=== PATIENT | male | born 1965 | race Caucasian/White ===

== ENCOUNTER → 2016-12-27 | Outpatient (CLI) | payer OTHER ==
[2016-12-27 15:36] LABS: CH 33.9; CHCM 34.5; HDW 2.32; MCH 34.2 pg (25.0-35.0); MCHC 34.7 g/dL (31.0-37.0); MCV 98.7 fL (80.0-100.0); RBC 4.67 m/uL (4.30-5.90); RDW 13.4 % (11.5-15.5); WBC 6.4 k/uL (3.8-10.6)
[2016-12-27 15:37] LABS: Appearance,Urine Clear (Clear); Bilirubin,Urine Negative (Negative); Glucose,Urine (UA) Negative (Negative); Ketones,Urine Negative (Negative); Leukocyte Esterase,Urine Negative (Negative); Nitrite,Urine Negative (Negative); PH, Urine 6.5 (5.0-8.0); Protein,Urine Negative (Negative); Specific Gravity,Urine 1.007 (1.001-1.035); UA Billing (MACRO vs. MICRO) CHEM; Urobilinogen,Urine <2.0 mg/dL (<2.0)
[2016-12-27 15:42] LABS: INR 1.1 (<1.2); Partial Thromboplastin Time 27.2 sec (22.0-30.0); Prothrombin Time 10.9 sec (9.0-12.0)
[2016-12-27 15:50] LABS: ALT 52 U/L (21-72); AST 37 U/L (17-59); Alkaline Phosphatase 95 U/L (38-126); Anion Gap 11 mmol/L; Blood Urea Nitrogen 13 mg/dL (9-20); Calcium 9.5 mg/dL (8.4-10.2); Carbon Dioxide 28 mmol/L (22-30); Chloride 102 mmol/L (98-107); Glucose 93 mg/dL (74-99); Non-African American GFR(MDRD) >60 (>60 ml/min/1.73 sqM); Potassium 4.4 mmol/L (3.5-5.1); Sodium 141 mmol/L (137-145); Total Bilirubin 1.2 mg/dL (0.2-1.3); Total Protein 7.3 g/dL (6.3-8.2)
== END | disposition home or self-care (01) ==
LOC: LABPAT 15:09
PROVIDERS: ATTEND Orthopaedic Surgery
DX: Z01.810 Encounter for preprocedural cardiovascular examination (principal)
CPT/HCPCS: 80053; 81003; 85027; 85610; 85730; 87070

== ENCOUNTER 2017-01-04 09:58 | Inpatient (IN) | payer OTHER ==
[~2017-01-04 09:58] MED LIST: ACETAMINOPHEN TAB 500 MG TAB PO ONE; DEXAMETHASONE SOD PHOSPHATE 10 MG/ML 1 ML VIAL IV ONE; HYDROmorphone 1 MG/ML 1 ML SYRINGE IVP PRN; MELOXICAM 7.5 MG TAB PO ONE; MIDAZOLAM 2 MG/2 ML VIAL IV PRN; ONDANSETRON 4 MG/2 ML VIAL IVP ONE; SCOPOLAMINE 1.5MG/72HR PATCH TRANSDERM ONE; TRANEXAMIC ACID 1,000 MG in SODIUM CHLORIDE 0.9% 100 ML IVPB ONE; ceFAZolin 2 GM in SODIUM CHLORIDE 0.9% 100 ML IVPB ONE
[2017-01-04] MEDS: LACTATED RINGERS 1,000 ML IV SCH (10:35)
[2017-01-04] MEDS ORDERED: LIDOCAINE 1% 20 ML VIAL (10MG/ML) FOR IV START INTRADERMA ONE (10:41)
[2017-01-04] MEDS ORDERED: NALOXONE 0.4 MG/ML 1 ML VIAL IV PRN (12:09)
[2017-01-04] MEDS ORDERED: HYDROmorphone 1 MG/ML 1 ML SYRINGE IVP PRN ×3 (12:09)
[2017-01-04] MEDS ORDERED: traMADol 50 MG TAB PO PRN ×2 (12:09→12:13)
[2017-01-04] MEDS ORDERED: ONDANSETRON 4 MG/2 ML VIAL IVP PRN (12:09)
[2017-01-04] MEDS ORDERED: hydrOXYzine PAMOATE 25 MG CAP PO PRN (12:09)
[2017-01-04] MEDS ORDERED: DIAZEPAM 5 MG TAB PO PRN ×2 (12:09)
[2017-01-04] MEDS ORDERED: MIDAZOLAM 2 MG/2 ML VIAL ONE (12:25)
[2017-01-04] MEDS ORDERED: SODIUM CHLORIDE 0.9% 1,000 ML BAG ONE (12:25)
[2017-01-04] MEDS ORDERED: fentaNYL (PF) 50 MCG/ML 2 ML AMP ONE (12:25)
[2017-01-04] MEDS ORDERED: PROPOFOL 10 MG/ML 20 ML VIAL IV ONE (12:25)
[2017-01-04] MEDS ORDERED: HEPARIN SODIUM,PORCINE 10,000 UNIT/ML 1 ML VIAL ONE (12:25)
[2017-01-04] MEDS ORDERED: TRANEXAMIC ACID 1,000 MG/10 ML VIAL ONE (12:25)
[2017-01-04] MEDS ORDERED: SODIUM CHLORIDE 0.9% 100 ML BAG ONE (12:25)
[2017-01-04] MEDS: ROPIVACAINE 246.25 MG, EPINEPHrine 0.5 MG, KETOROLAC 30 MG, cloNIDine HCL/PF 80 MCG, WA... MISCELLANE ONE ×10 (12:53→13:31)
[2017-01-04] MEDS ORDERED: ceFAZolin 3,000 MG in SODIUM CHLORIDE 0.9% IRRIGATIO 3,000 ML IRRIGATION ONE (12:54)
[2017-01-04] MEDS ORDERED: LACTATED RINGERS 1,000 ML IV ONE (13:13)
--- NOTE | 2017-01-04 14:13 | FL ---
EXAMINATION TYPE: FL guidance operating room, XR Hip Limited RT DATE OF EXAM: 01/04/2017 CLINICAL HISTORY: Right hip replacement surgery. TECHNIQUE: Fluoroscopy. Limited intraoperative views right hip. COMPARISON: None. FINDINGS: Fluoroscopic guidance was provided during total hip replacement procedure performed by Dr. Ledezma. A total of 34 seconds of fluoroscopic time was utilized during the procedure and 2 spot i ntraoperative images are acquired. Images acquired show metallic hardware from right hip arthroplasty under AP projection and appears sa tisfactory in position. IMPRESSION: As Above.
--- NOTE | 2017-01-04 14:38 | XR ---
EXAMINATION TYPE: XR Hip Limited RT DATE OF EXAM: 01/04/2017 CLINICAL HISTORY: Right hip pain and osteoarthritis status post replacement today. TECHNIQUE: Single AP portable view of the right hip is obtained immediately postoperatively. COMPARISON: None. FINDINGS: Metallic hardware from right hip arthroplasty is seen and appears satisfactory in alignment and position. There is evidence of recent surgery with subcutaneous gas noted superior laterally. Prominent right superior lateral acetabular spurring is incidentally noted. IMPRESSION: Metallic hardware from right hip arthroplasty is satisfactory in position.
--- NOTE | 2017-01-04 15:17 | P.OP ---
Date of Procedure: 01/04/17 Preoperative Diagnosis: Severe osteoarthritis right hip Postoperative Diagnosis: Severe osteoarthritis right hip Procedure(s) Performed: Right total hip arthroplasty with a direct anterior approach Implants: Shearer and nephew Polarstem size 4 standard Shearer & Nephew R3, 3 hole acetabular shell, 54 mm Shearer & Nephew reflection 6.5 mm cancellus screw, 20 mm 2 Shearer [employer] Nephew R3, XLPE 20 acetabular liner Shearer & Nephew Oxinium femoral head 36 m, +4 All components were press-fit. The articulation is ceramic on polyethylene. Anesthesia: spinal Surgeon: Preston Ledezma Astronautical Engineer #1: Sindy Lobo Estimated Blood Loss (ml): 300 (130 returned with cell saver) Pathology: other (Femoral head) Condition: stable Disposition: PACU Indications for Procedure: After failure of conservative treatment we discussed the surgical and nonsurgical treatment options at length. Patient wishes to proceed with a total hip arthroplasty with a direct anterior approach. Complications specific to this procedure were discussed at length, including but not limited to infection, leg length discrepancy, dislocation, and nerve injury. Patient is aware of all these complications and informed consent was obtained Operative Findings: The operative findings are consistent with severe osteoarthritis of the right hip Description of Procedure: Patient was seen and evaluated in the preoperative area, consent was reviewed, and the surgical site was marked with a skin marker. Patient was then brought to the operating room and given prophylactic antibiotics intravenously. 1 g of Tranexamic acid was also given. A spinal anesthetic was administered by the anesthesia department. The patient was then placed on the [place] table with the bony prominences well-padded. The hip area was then prepped and draped in usual sterile fashion. A universal timeout was then performed, which confirmed the patient's name, surgical site, ALLERGIES, and procedure being performed. Next the incision site was located at 1 cm distal and 1 cm lateral to the anterior superior iliac spine. The skin and subcutaneous tissues were sharply incised. Incision was carefully dissected down to the fascia overlying the tensor fascia luther muscle. This fascia was then incised in line with the incision. Next, using blunt finger dissection, the tensor fascia luther muscle was dissected off its investing fascia. The muscle was then carefully retracted laterally with a cobra retractor over the lateral neck of the femur. Next, the circumflex vessels were identified and cauterized using the AquaMantis device. The anterior hip capsule was then exposed. The capsule was then opened and an inverted T fashion. Cobra retractors were then placed intracapsularly. The proximal femur was then visualized. The femoral neck was then osteotomized appropriate level above the lesser trochanter. Small amount of traction was placed with the [place] table. A small wedge of bone was then removed from the remaining femoral head. Next, using a corkscrew femoral head was easily removed from the acetabulum. On gross visual inspection, the femoral head had complete loss of articular cartilage in multiple periarticular osteophytes. Attention was then turned to the acetabulum. the acetabulum was exposed and any remaining labrum was excised. Sequential reaming of the acetabulum was performed using fluoroscopic guidance. When the appropriate size was reached, a trial was then placed. The position and fit of the trial was checked with fluoroscopy. The trial was then removed. Then, using fluoroscopic guidance, the final implant was impacted at 20 of anteversion and 40 of abduction, and fully seated in the acetabulum. 2 screws were then placed in the acetabulum. Again fluoroscopy was used to check position of the screws. Next, the liner was then impacted, with a 20 elevated liner located in the anterior superior quadrant. Component locking was confirmed. Attention was then directed to the femur. With the aid of the [place] table, the femur was externally rotated to approximately 130, extended, and abducted under the opposite leg. A side hook was then placed under the proximal femur, and the side hook elevator was used to elevate the proximal femur. Retractors were then placed. A capsular release was performed, as well as a release of the conjoined tendon, which afforded excellent visualization of the proximal femur. Next, a box osteotome was used to lateralize the proximal femur. A stone polisher hand was then used to locate the femoral canal. Sequential broaching was then performed with appropriate size which afforded excellent fixation in the proximal femur. A trial was then placed with appropriate head and neck, and the hip was gently reduced with the aid of the [place] table. Fluoroscopy was then used to check position of the components, as well as to ensure equal leg lengths. The hip was then gently dislocated and the trials were then removed. Final implants were then impacted and the hip was again reduced. Final fluoroscopic x-rays confirmed that the components were in anatomic position, as well as equal leg lengths. The hip was also taken through range of motion, and found to be stable. The hip was then copiously irrigated with antibiotic solution with pulsatile lavage. The hip was then irrigated with Irrisept solution. The soft tissues were then injected with a ropivacaine solution, which consisted of 246.25 mg of ropivacaine, 0.5 mg of epinephrine, 30 mg of Toradol, 80 g of clonidine, and 48.45 mL of sterile water, for a total of 100 mL of fluid injected. A second dose of 1 g of Tranexamic acid was also given. the fascia was then closed with 2-0 strata fix suture. The subcutaneous tissue was closed with 3-0 Vicryl. The subcuticular tissue was closed with 3-0 strata fix suture. The skin was then closed with Dermabond tape. The patient was then transferred to the recovery room in stable condition. The public services assistant BILL Hook was required due to the complexity of surgery, and the need for skilled surgical first assistant for positioning, draping, exposure, retraction, and closure of the wound.
[2017-01-04 15:25] VITALS: BMI 26.3
[2017-01-04] MEDS ORDERED: HYDROcodone/APAP 5-325MG 1 EACH TAB PO PRN ×2 (15:57)
[2017-01-04] MEDS: SODIUM CHLORIDE 0.9% 1,000 ML IV SCH (17:54)
[2017-01-04] MEDS: ASPIRIN 325 MG TAB PO SCH (20:37)
[2017-01-04] MEDS: ceFAZolin 2 GM in SODIUM CHLORIDE 0.9% 100 ML IVPB SCH (20:38)
[2017-01-04] MEDS ORDERED: SENNOSIDES-DOCUSATE SODIUM 1 EACH TAB PO SCH (21:00)
[2017-01-04] MEDS ORDERED: TEMAZEPAM 15 MG CAP PO PRN (21:26)
[2017-01-04] MEDS ORDERED: GABAPENTIN 300 MG CAP PO PRN (22:07)
[2017-01-05] MEDS: ceFAZolin 2 GM in SODIUM CHLORIDE 0.9% 100 ML IVPB SCH (04:47)
[2017-01-05] MEDS: SODIUM CHLORIDE 0.9% 1,000 ML IV SCH (05:38)
[2017-01-05] MEDS: LACTATED RINGERS 1,000 ML IV SCH (05:49)
[2017-01-05 08:00] LABS: Basophils % (A) 0 %; CH 34.2; CHCM 34.7; Eosinophils % (A) 0 %; HDW 2.35; HGB 13.4 gm/dL (13.0-17.5); Luc # (Auto) 0.16; Luc % (Auto) 2; Lymphocytes # (A) 1.4 k/uL (1.0-4.8); Lymphocytes % (A) 14 %; MCH 33.2 pg (25.0-35.0); MCHC 33.5 g/dL (31.0-37.0); MCV 98.9 fL (80.0-100.0); Monocytes # (A) 0.5 k/uL (0-1.0); Monocytes % (A) 5 %; Neutrophils # (A) 8.4 k/uL (1.3-7.7); Neutrophils % (A) 80 %; RBC 4.05 m/uL (4.30-5.90); RDW 13.2 % (11.5-15.5); WBC 10.5 k/uL (3.8-10.6)
[2017-01-05 08:02] LABS: ALT 40 U/L (21-72); AST 27 U/L (17-59); Alkaline Phosphatase 65 U/L (38-126); Anion Gap 7 mmol/L; Blood Urea Nitrogen 12 mg/dL (9-20); Calcium 8.8 mg/dL (8.4-10.2); Carbon Dioxide 26 mmol/L (22-30); Chloride 107 mmol/L (98-107); Glucose 95 mg/dL (74-99); Non-African American GFR(MDRD) >60 (>60 ml/min/1.73 sqM); Potassium 4.2 mmol/L (3.5-5.1); Sodium 140 mmol/L (137-145); Total Bilirubin 1.1 mg/dL (0.2-1.3); Total Protein 5.5 g/dL (6.3-8.2)
[2017-01-05] MEDS ORDERED: MELOXICAM 7.5 MG TAB PO SCH (09:00)
[2017-01-05] MEDS: ASPIRIN 325 MG TAB PO SCH (09:03)
[2017-01-05 09:10] VITALS: BP 120/50; PULSE 58; RESP 14; TEMP 98
--- NOTE | 2017-01-05 09:56 | CONS ---
DATE OF CONSULTATION: 01/04/2017 The reason for consultation is advice regarding hypertension and other medical issues requested by Dr. Ledezma. HISTORY OF PRESENT ILLNESS: This 51-year-old gentleman with the past medical history of hypertension, history of DJD, being followed by Dr. Vieyra in the outpatient setting, admitted for total knee arthroplasty. There is no history of fever, chills or rigors. No history of headache, loss of consciousness. Past medical history is hypertension, DJD, history of with Tylenol, history of staph infection of the elbow. Other medications prior to admission include, home medications are Requip 1 mg q.h.s., vitamin B complex 1 p.o. daily, Tumeric, red yeast rice, [place] 3 fatty acids, Aleve, multivitamin, melatonin, glucosamine, ginseng, Neurontin 300 mg to 600 mg q.8 p.r.n., Tylenol 500 mg q.4 - 6 p.r.n. ALLERGIES: Acetaminophen. FAMILY HISTORY: History of cancer in the family. SOCIAL HISTORY: No history of smoking, no history of alcohol intake. REVIEW OF SYSTEMS: ENT: No diminished vision or diminished hearing. CARDIOVASCULAR SYSTEM: No angina or palpitations. RESPIRATION: No cough. GI: No nausea. : No dysuria. NERVOUS SYSTEM: No numbness or weakness. ALLERGY/IMMUNOLOGY: No asthma or hayfever. MUSCULOSKELETAL: As mentioned earlier. HEMATOLOGY: No history of anemia. ENDOCRINE: No history of diabetes or hypothyroid. CONSTITUTIONAL: As mentioned earlier. DERMATOLOGY: Negative. RHEUMATOLOGY: Negative. PSYCHIATRY: As mentioned earlier. PHYSICAL EXAM: Patient is alert and oriented x3. The pulse is 68, blood pressure 126/71, respirations 16, temperature is 97.8, pulse ox 96% on room air. HEENT: Conjunctivae normal. NECK: No jugular venous distension. CARDIOVASCULAR SYSTEM: S1, S2, muffled. RESPIRATORY: Breath sounds diminished at the bases, no rhonchi, no crackles. ABDOMEN: Soft, nontender, no mass palpable. LEGS: No edema, no swelling. NERVOUS SYSTEM: Higher functions as mentioned, moves all four limb. LYMPHATICS: No lymph node enlargement in the neck, axillae or groin. SKIN: No ulcer, rash, bleeding. Labs are at this time not available. The recent labs are hematology shows normal CBC, coags are normal. The basic CMP was also normal except LDL of 109. INR was negative. IMPRESSION: 1. Status post right total hip arthroplasty. 2. Hypertension. 3. Degenerative joint disease. 4. History of past liver issues. RECOMMENDATION: In this 51-year-old gentleman who presented with multiple complex medical issues, recommend to continue with the current medication and symptomatic treatment. Otherwise, I would recommend resume the home medications. The medication reconcile will be performed. Otherwise, I would also recommend resume some other medications as an outpatient, DVT prophylaxis, incentive spirometry. Will follow the patient closely and would also recommend a CMP also in the morning to ensure normalcy of the liver function because of the patient's past medical history of hepatic issues. The prognosis guarded because of the multiple complex medical issues. Further recommendations to follow. MTDD
--- NOTE | 2017-01-05 10:04 | P.DS ---
Providers Date of admission: 01/04/17 09:58 Expected date of discharge: 01/05/17 Attending physician: Preston Ledezma Consults: 01/04/17 12:09 Consult Physician Routine Consulting Provider: Hoang Montoya Consult Reason/Comments: medical management Do you want consulting provider notified?: Yes Primary care physician: Heather Vieyra - Discharge Diagnosis(es) (1) Primary osteoarthritis of right hip Current Visit: Yes Status: Acute (2) S/P total hip arthroplasty Current Visit: Yes Status: Acute Hospital Course: This is a 51-year-old male with known history of degenerative arthritis of the right hip. The patient presents for evaluation. After discussion and consideration patient elects to proceed with total hip arthroplasty. The patient is seen preoperatively by Dr. Ledezma and cleared for surgery. Patient is admitted to [facility] on 01/04/2017 for total hip arthroplasty. The procedures performed without complication or sequelae. The patient is doing well postoperatively. Labs and vital signs are stable on day of discharge. On day of discharge patient's hip incision is healing well. There is minimal erythema. There is mild drainage noted at this time. There is minimal soft tissue swelling to the hip and thigh. Patient has full foot and ankle motion without difficulty or pain. Neurovascular status to the right lower extremity is intact. Patient is discharged home in good condition.Please see med rec for accurate list of home medications. Plan - Discharge Summary New Discharge Prescriptions: New Aspirin 325 mg PO BID #60 tab HYDROcodone/APAP 5-325MG [[place] 5-325] 1 - 2 tab PO Q4-6H PRN #90 tab PRN Reason: Pain Sennosides-Docusate Sodium [Senokot-S] 1 tab PO BID #60 tablet No Action rOPINIRole HCL [Requip] 1 mg PO HS Gabapentin [Neurontin] 300 - 600 mg PO Q8HR PRN PRN Reason: Pain Naproxen Sodium [Aleve] 220 mg PO Q12HR PRN PRN Reason: Pain Turmeric Root Extract [Turmeric] 500 mg PO DAILY Vitamin B Complex 1 cap PO DAILY Red Yeast Rice 600 mg PO DAILY Glucosam/Tenzin-Msm1/C/Brandyn/Bosw [Glucosamine-Chondroitin Tablet] 1 tab PO DAILY Ginseng 200 mg PO DAILY [place]-3 Fatty Acids/Fish Oil [Fish Oil 1,000 mg Softgel] 1 cap PO DAILY Melatonin 5 mg PO HS Multivit-Min/FA/Lycopen/Lutein [Cent[place] Silver Tablet] 1 tab PO DAILY Acetaminophen [Tylenol] 500 mg PO Q4-6H PRN PRN Reason: Pain Discharge Medication List Gabapentin [Neurontin] 300 - 600 mg PO Q8HR PRN 12/28/16 [History] Ginseng 200 mg PO DAILY 12/28/16 [History] Glucosam/Tenzin-Msm1/C/Brandyn/Bosw [Glucosamine-Chondroitin Tablet] 1 tab PO DAILY 12/28/16 [History] Melatonin 5 mg PO HS 12/28/16 [History] Multivit-Min/FA/Lycopen/Lutein [Centrum Silver Tablet] 1 tab PO DAILY 12/28/16 [ History] Naproxen Sodium [Aleve] 220 mg PO Q12HR PRN 12/28/16 [History] [place]-3 Fatty Acids/Fish Oil [Fish Oil 1,000 mg Softgel] 1 cap PO DAILY [History] Red Yeast Rice 600 mg PO DAILY 12/28/16 [History] Turmeric Root Extract [Turmeric] 500 mg PO DAILY 12/28/16 [History] Vitamin B Complex 1 cap PO DAILY 12/28/16 [History] rOPINIRole HCL [Requip] 1 mg PO HS 12/28/16 [History] Acetaminophen [Tylenol] 500 mg PO Q4-6H PRN 01/04/17 [History] Aspirin 325 mg PO BID #60 tab 01/05/17 [Rx] HYDROcodone/APAP 5-325MG [[place] 5-325] 1 - 2 tab PO Q4-6H PRN #90 tab 01/05/17 [ Rx] Sennosides-Docusate Sodium [Senokot-S] 1 tab PO BID #60 tablet 01/05/17 [Rx] Follow up Appointment(s)/Referral(s): Preston Ledezma DO [Doctor of Osteopathic Medicine] - 2 Weeks Activity/Diet/Wound Care/Special Instructions: Weightbearing as tolerated with walker May shower after 2 days if no drainage from the incision Follow-up with [facility] in 2 weeks with any questions or concerns Discharge Disposition: HOME WITH HOME HEALTH SERVICES
[2017-01-05] MEDS ORDERED: MELATONIN 5 MG TABLET PO SCH (21:00)
--- NOTE | 2017-01-05 21:47 | PN ---
DATE OF SERVICE: 01/05/17 This 51 -year-old gentleman who was admitted after right total knee joint arthroplasty is improving significantly. No chest pain. No palpitations. No fever. PHYSICAL EXAMINATION: The patient is alert and oriented times three. Pulse 58. Blood pressure 120/50. Respiratory rate 14. Temperature 98 degrees. Pulse ox 99% on room air. HEENT: Conjunctivae normal. NECK: No JVD. CARDIOVASCULAR: S1, S2 muffled. RESPIRATORY: Breath sounds diminished at the bases. A few scattered rhonchi and no crackles. Abdomen is soft. LEGS: Status post hip arthroplasty. NERVOUS SYSTEM: No focal deficits. LABS: WBC 10.9. Hemoglobin 13.4. albumin 3.2. ASSESSMENT: 1. Status post right total hip joint arthroplasty. 2. Hypertension. Essential. 3. Degenerative joint disease. 4. History of past liver issues. RECOMMENDATIONS AND DISCUSSION: Continue the current medications. Continue symptomatic treatment. Continue with monitoring. Otherwise, at this time, I recommend continue the current medications. Continue symptomatic treatment. Closely follow. Further recommendations to follow. MTDD
== END 2017-01-05 12:42 | disposition home health service (06) | DRG 470 ==
LOC: 2ORMAIN 09:58 → 3SUR 14:11
PROVIDERS: ADMIT Orthopaedic Surgery; ATTEND Orthopaedic Surgery
PROC: 0SR904A Replacement of Right Hip Joint with Ceramic on Polyethylene Synthetic Substitute, Uncemented, Open Approach (ICD-10-PCS; principal; 2017-01-04 11:30)
DX: M16.11 Unilateral primary osteoarthritis, right hip (principal); I10 Essential (primary) hypertension; Z86.19 Personal history of other infectious and parasitic diseases; Z79.899 Other long term (current) drug therapy
CPT/HCPCS: 73501; 80053; 85025; 86850; 86891; 86900; 86901; 88300

== ENCOUNTER 2017-03-07 06:00 | Inpatient (IN) | payer OTHER ==
[2017-03-01 12:30] VITALS: BMI 26.3
[~2017-03-07 06:00] MED LIST changes: +HYDROmorphone 0.5 MG/0.5 ML SYRINGE IVP PRN; -HYDROmorphone 1 MG/ML 1 ML SYRINGE IVP PRN
[2017-03-07] MEDS: LACTATED RINGERS 1,000 ML IV SCH (07:15)
[2017-03-07] MEDS ORDERED: FAMOTIDINE 20 MG/2 ML VIAL IVP ONE (07:16)
[2017-03-07] MEDS ORDERED: METOCLOPRAMIDE 5 MG/ML 2 ML VIAL IVP ONE (07:16)
[2017-03-07] MEDS ORDERED: NALOXONE 0.4 MG/ML 1 ML VIAL IV PRN (07:26)
[2017-03-07] MEDS ORDERED: HYDROmorphone 0.5 MG/0.5 ML SYRINGE IVP PRN ×2 (07:26)
[2017-03-07] MEDS ORDERED: HYDROcodone/APAP 5-325MG 1 EACH TAB PO PRN (07:26)
[2017-03-07] MEDS ORDERED: HYDROmorphone 1 MG/ML 1 ML SYRINGE IVP PRN (07:26)
[2017-03-07] MEDS ORDERED: MAGNESIUM HYDROXIDE 2,400 MG/10 ML CUP PO PRN (07:26)
[2017-03-07] MEDS ORDERED: ONDANSETRON 4 MG/2 ML VIAL IVP PRN (07:26)
[2017-03-07] MEDS ORDERED: hydrOXYzine PAMOATE 25 MG CAP PO PRN (07:26)
[2017-03-07] MEDS ORDERED: DIAZEPAM 5 MG TAB PO PRN ×2 (07:26)
[2017-03-07] MEDS ORDERED: SODIUM CHLORIDE 0.9% 100 ML BAG ONE (07:36)
[2017-03-07] MEDS ORDERED: ceFAZolin 3,000 MG in SODIUM CHLORIDE 0.9% IRRIGATIO 3,000 ML IRRIGATION ONE (07:36)
[2017-03-07] MEDS ORDERED: PROPOFOL 10 MG/ML 20 ML VIAL IV ONE (07:36)
[2017-03-07] MEDS ORDERED: TRANEXAMIC ACID 1,000 MG/10 ML VIAL ONE (07:36)
[2017-03-07] MEDS ORDERED: fentaNYL (PF) 50 MCG/ML 2 ML AMP ONE (07:36)
[2017-03-07] MEDS ORDERED: HEPARIN SODIUM,PORCINE 10,000 UNIT/ML 1 ML VIAL ONE (07:36)
[2017-03-07] MEDS ORDERED: SODIUM CHLORIDE 0.9% IRRIG 1,000 ML BTL IRRIGATION ONE (07:36)
[2017-03-07] MEDS ORDERED: MIDAZOLAM 2 MG/2 ML VIAL ONE (07:36)
[2017-03-07] MEDS: ROPIVACAINE 246.25 MG, EPINEPHrine 0.5 MG, KETOROLAC 30 MG, cloNIDine HCL/PF 80 MCG, WA... MISCELLANE ONE ×10 (08:02→08:49)
--- NOTE | 2017-03-07 09:12 | P.OP ---
Date of Procedure: 03/07/17 Preoperative Diagnosis: Severe osteoarthritis left hip Postoperative Diagnosis: Severe osteoarthritis left hip Procedure(s) Performed: Left total hip arthroplasty with a direct anterior approach Implants: Shearer and nephew Polarstem size 4 standard Shearer & Nephew R3, 3 hole acetabular shell, 54 mm Shearer & Nephew reflection 6.5 mm cancellus screw, 20 mm 2 Shearer & Nephew R3, XLPE 20 acetabular liner Shearer & Nephew Oxinium femoral head 36 m, +4 All components were press-fit. The articulation is ceramic on polyethylene. Anesthesia: spinal Surgeon: Preston Ledezma Stringer Up Soldering Machine #1: Sindy Lobo Estimated Blood Loss (ml): 200 (68 mL returned with Cell Saver) Pathology: other (Femoral head) Condition: stable Disposition: PACU Indications for Procedure: After failure of conservative treatment we discussed the surgical and nonsurgical treatment options at length. Patient wishes to proceed with a total hip arthroplasty with a direct anterior approach. Complications specific to this procedure were discussed at length, including but not limited to infection, leg length discrepancy, dislocation, and nerve injury. Patient is aware of all these complications and informed consent was obtained Operative Findings: The operative findings are consistent with severe osteoarthritis of the left hip Description of Procedure: Patient was seen and evaluated in the preoperative area, consent was reviewed, and the surgical site was marked with a skin marker. Patient was then brought to the operating room and given prophylactic antibiotics intravenously. 1 g of Tranexamic acid was also given. A spinal anesthetic was administered by the anesthesia department. The patient was then placed on the [place] table with the bony prominences well-padded. The hip area was then prepped and draped in usual sterile fashion. A universal timeout was then performed, which confirmed the patient's name, surgical site, ALLERGIES, and procedure being performed. Next the incision site was located at 1 cm distal and 1 cm lateral to the anterior superior iliac spine. The skin and subcutaneous tissues were sharply incised. Incision was carefully dissected down to the fascia overlying the tensor fascia luther muscle. This fascia was then incised in line with the incision. Next, using blunt finger dissection, the tensor fascia luther muscle was dissected off its investing fascia. The muscle was then carefully retracted laterally with a cobra retractor over the lateral neck of the femur. Next, the circumflex vessels were identified and cauterized using the AquaMantis device. The anterior hip capsule was then exposed. The capsule was then opened and an inverted T fashion. Cobra retractors were then placed intracapsularly. The proximal femur was then visualized. The femoral neck was then osteotomized appropriate level above the lesser trochanter. Small amount of traction was placed with the [place] table. A small wedge of bone was then removed from the remaining femoral head. Next, using a corkscrew femoral head was easily removed from the acetabulum. On gross visual inspection, the femoral head had complete loss of articular cartilage in multiple periarticular osteophytes. Attention was then turned to the acetabulum. the acetabulum was exposed and any remaining labrum was excised. Sequential reaming of the acetabulum was performed using fluoroscopic guidance. When the appropriate size was reached, a trial was then placed. The position and fit of the trial was checked with fluoroscopy. The trial was then removed. Then, using fluoroscopic guidance, the final implant was impacted at 20 of anteversion and 40 of abduction, and fully seated in the acetabulum. 2 screws were then placed in the acetabulum. Again fluoroscopy was used to check position of the screws. Next, the liner was then impacted, with a 20 elevated liner located in the anterior superior quadrant. Component locking was confirmed. Attention was then directed to the femur. With the aid of the [place] table, the femur was externally rotated to approximately 130, extended, and abducted under the opposite leg. A side hook was then placed under the proximal femur, and the side hook elevator was used to elevate the proximal femur. Retractors were then placed. A capsular release was performed, as well as a release of the conjoined tendon, which afforded excellent visualization of the proximal femur. Next, a box osteotome was used to lateralize the proximal femur. A hand spring repairer was then used to locate the femoral canal. Sequential broaching was then performed with appropriate size which afforded excellent fixation in the proximal femur. A trial was then placed with appropriate head and neck, and the hip was gently reduced with the aid of the [place] table. Fluoroscopy was then used to check position of the components, as well as to ensure equal leg lengths. The hip was then gently dislocated and the trials were then removed. Final implants were then impacted and the hip was again reduced. Final fluoroscopic x-rays confirmed that the components were in anatomic position, as well as equal leg lengths. The hip was also taken through range of motion, and found to be stable. The hip was then copiously irrigated with antibiotic solution with pulsatile lavage. The hip was then irrigated with Irrisept solution. The soft tissues were then injected with a ropivacaine solution, which consisted of 246.25 mg of ropivacaine, 0.5 mg of epinephrine, 30 mg of Toradol, 80 g of clonidine, and 48.45 mL of sterile water, for a total of 100 mL of fluid injected. A second dose of 1 g of Tranexamic acid was also given. the fascia was then closed with 2-0 strata fix suture. The subcutaneous tissue was closed with 3-0 Vicryl. The subcuticular tissue was closed with 3-0 strata fix suture. The skin was then closed with Dermabond tape. The patient was then transferred to the recovery room in stable condition. The energy assistant BILL Hook was required due to the complexity of surgery, and the need for skilled surgical elastic knitter hand frame for positioning, draping, exposure, retraction, and closure of the wound.
--- NOTE | 2017-03-07 09:12 | FL ---
Fluoroscopy History: ANT LT HIP ANT LT HIP. DR PALOMINO. 53 SEC FLUORO TIME. 3 OR FILMS.
--- NOTE | 2017-03-07 09:13 | XR ---
EXAMINATION TYPE: XR Hip Complete LT DATE OF EXAM: 03/07/2017 CLINICAL HISTORY: Postoperative alignment TECHNIQUE: 2 fluoroscopic views obtained of the left hip. COMPARISON: None. FINDINGS: Metallic hardware from left hip arthroplasty is seen and appears satisfactory in alignment and position. There is evidence of recent surgery with subcutaneous gas noted laterally. IMPRESSION: Metallic hardware from left hip arthroplasty is satisfactory in position.
[2017-03-07] MEDS ORDERED: LACTATED RINGERS 1,000 ML IV ONE (09:16)
--- NOTE | 2017-03-07 10:12 | XR ---
EXAMINATION TYPE: XR Hip Limited LT DATE OF EXAM: 03/07/2017 CLINICAL HISTORY: Postoperative evaluation TECHNIQUE: Single portable view of the left hip was submitted. FINDINGS: Noted are changes of total hip arthroplasty with femoral and acetabular components appearin g well seated. Alignment is anatomic. Postsurgical soft tissue changes are evident. IMPRESSION: Satisfactory postoperative alignment
[2017-03-07] MEDS: oxyCODONE ER 10 MG TAB.ER.12H PO SCH ×2 (11:22→20:25)
[2017-03-07] MEDS: ASPIRIN 325 MG TAB PO SCH ×2 (11:22→20:24)
[2017-03-07] MEDS: SODIUM CHLORIDE 0.9% 1,000 ML IV SCH ×2 (11:59→23:55)
[2017-03-07] MEDS ORDERED: LORazepam 2 MG/ML INJ IV PRN (15:15)
[2017-03-07] MEDS: ceFAZolin 2 GM in SODIUM CHLORIDE 0.9% 100 ML IVPB SCH ×2 (16:03→23:55)
[2017-03-07] MEDS: HYDROcodone/APAP 5-325MG 1 EACH TAB PO PRN (16:07)
[2017-03-07] MEDS ORDERED: SENNOSIDES-DOCUSATE SODIUM 1 EACH TAB PO SCH (21:00)
--- NOTE | 2017-03-08 00:02 | CONS ---
CONSULTATION DATE OF SERVICE: 03/07/2017 REASON FOR CONSULTATION: Advice regarding DJD and multiple other medical issues, requested by Dr. Ledezma. HISTORY OF PRESENT ILLNESS: This 51-year-old gentleman with a past medical history of severe DJD, history of staph infection, history of orthopedic surgery, being followed by Dr. Vieyra in the outpatient setting, underwent left total hip joint arthroplasty with direct anterior approach for severe DJD by Dr. Ledezma. There is no history of any chest pain, no history of palpitation, no history of headache, loss of consciousness, nausea, vomiting, diarrhea, fever, rigor or chills at this time. The basic labs prior to admission were MCV 101. Otherwise, chemistry was showing creatinine of 1.27. LDL was 109. UA was noted. PAST MEDICAL HISTORY: 1. History of DJD. 2. History of staph infection. HOME MEDICATIONS: 1. Requip 1 mg at bedtime. 2. Vitamin B complex. 3. Turmeric 500 mg p.o. daily. 4. Red yeast rice 600 mg daily. 5. Sulphur-3 fatty acids. 6. Multivitamins. 7. Melatonin 5 mg daily. 8. [place] 1 to 2 tablets q.4 to 6 p.r.n. 9. Ginseng. 10.Neurontin 300 to 600 mg q.8 p.r.n. 11.Aspirin 320 mg p.o. b.i.d. ALLERGIES: NONE. FAMILY HISTORY: History of cancer in the family. SOCIAL HISTORY: Occasional alcohol. No history of smoking. REVIEW OF SYSTEMS: ENT: No diminished hearing. No diminished vision. CARDIOVASCULAR SYSTEM: No angina, palpitations. RESPIRATORY SYSTEM: No cough, hemoptysis. GI: No nausea, vomiting. : No dysuria or retention. NERVOUS SYSTEM: No numbness, weakness. ALLERGY/IMMUNOLOGY: No asthma, hayfever. MUSCULOSKELETAL: As mentioned earlier. HEMATOLOGY/ONCOLOGY: No history of anemia. ENDOCRINE: No history of diabetes, hypothyroidism. CONSTITUTIONAL: As mentioned earlier. DERMATOLOGY: Negative. RHEUMATOLOGY: Negative. PSYCHIATRY: As mentioned earlier. PHYSICAL EXAMINATION: Patient is alert and oriented x3. Pulse is 79, blood pressure 176/90, respiration 18, temperature normal, pulse ox normal. HEENT: Conjunctivae normal. Oral mucosa moist. NECK: No jugular venous distention. No carotid bruit. No lymph node enlargement. CARDIOVASCULAR SYSTEM: S1, S2 muffled. RESPIRATORY SYSTEM: Breath sounds diminished at the bases. No rhonchi. No crackles. ABDOMEN: Soft, nontender. No mass palpable. LEGS: Status post left hip arthroplasty. NERVOUS SYSTEM: Higher functions as mentioned earlier. Moves all 4 limbs. No focal sensory or motor deficit. LYMPHATICS: No lymph node palpable in neck, axillae or groin. SKIN: No ulcer, rash, bleeding. JOINTS: As mentioned earlier. LAB INVESTIGATIONS: As noted. ASSESSMENT: 1. Status post left total hip joint arthroplasty. 2. Increased creatinine recently with possible mild acute renal failure. 3. History of degenerative joint disease. 4. Hypertension. 5. History of staph infection. 6. Hyperlipidemia. RECOMMENDATIONS AND DISCUSSION: In this 51-year-old gentleman who presented with multiple complex medical issues, we will we will monitor the patient closely, continue the current medications, continue with symptomatic treatment. I recommend monitoring the blood pressure closely, p.r.n. medications, DVT prophylaxis. I would also recommend close followup in the outpatient setting. I recommend adequate hydration. Repeat labs in the morning. Further recommendations to follow. We will follow the patient closely with you. Patient may be asked to follow up with Dr. Vieyra in the outpatient setting. Thank you, Dr. Ledezma, for letting us participate in the care of this patient. BMP is ordered for tomorrow. MMJANNETL / NON: [id number] /
[2017-03-08] MEDS: LACTATED RINGERS 1,000 ML IV SCH (01:13)
[2017-03-08 07:23] LABS: Anion Gap 6 mmol/L; Blood Urea Nitrogen 13 mg/dL (9-20); Calcium 8.7 mg/dL (8.4-10.2); Carbon Dioxide 27 mmol/L (22-30); Chloride 106 mmol/L (98-107); Glucose 94 mg/dL (74-99); Non-African American GFR(MDRD) >60 (>60 ml/min/1.73 sqM); Potassium 4.5 mmol/L (3.5-5.1); Sodium 139 mmol/L (137-145)
[2017-03-08 07:41] LABS: Basophils % (A) 0 %; CH 32.9; Eosinophils % (A) 1 %; HCT 38.1 % (39.0-53.0); HDW 2.37; Luc # (Auto) 0.16; Luc % (Auto) 2; Lymphocytes # (A) 1.4 k/uL (1.0-4.8); Lymphocytes % (A) 17 %; MCH 33.5 pg (25.0-35.0); MCHC 33.5 g/dL (31.0-37.0); Mean Platelet Volume 8.3; Monocytes # (A) 0.5 k/uL (0-1.0); Monocytes % (A) 6 %; Neutrophils # (A) 6.2 k/uL (1.3-7.7); Neutrophils % (A) 74 %; RBC 3.82 m/uL (4.30-5.90); RDW 12.8 % (11.5-15.5); WBC 8.3 k/uL (3.8-10.6); WBC (Perox) 9.22
[2017-03-08 07:51] VITALS: BP 117/64; PULSE 79; RESP 16; TEMP 97.7
[2017-03-08 07:55] LABS: HGB 12.8 gm/dL (13.0-17.5)
[2017-03-08] MEDS: ASPIRIN 325 MG TAB PO SCH (08:04)
[2017-03-08] MEDS: oxyCODONE ER 10 MG TAB.ER.12H PO SCH (08:05)
[2017-03-08] MEDS ORDERED: MELOXICAM 7.5 MG TAB PO SCH (09:00)
--- NOTE | 2017-03-08 09:16 | P.DS ---
Providers Date of admission: 03/07/17 06:00 Expected date of discharge: 03/08/17 Attending physician: Preston Ledezma Consults: 03/07/17 07:26 Consult Physician Routine Consulting Provider: Seun Cabrera Consult Reason/Comments: medical management Do you want consulting provider notified?: Yes Primary care physician: Stated None Hospital Course: This is a 51-year-old male with known history of degenerative arthritis of the left hip. The patient presents for evaluation. After discussion and consideration patient elects to proceed with total hip arthroplasty. The patient is seen preoperatively by Dr. Ledezma and cleared for surgery. Patient is admitted to [facility] on 03/07/2017 for total hip arthroplasty. The procedures performed without complication or sequelae. The patient is doing well postoperatively. Labs and vital signs are stable on day of discharge. On day of discharge patient's hip incision is healing well. There is minimal erythema. There is no drainage noted at this time. There is minimal soft tissue swelling to the hip and thigh. Patient has full foot and ankle motion without difficulty or pain. Neurovascular status to the left lower extremity is intact. Patient is discharged home in good condition.Please see med rec for accurate list of home medications. Plan - Discharge Summary New Discharge Prescriptions: New Aspirin 325 mg PO BID #60 tab HYDROcodone/APAP 5-325MG [Roby 5-325] 1 - 2 tab PO Q4-6H PRN #90 tab PRN Reason: Pain Sennosides-Docusate Sodium [Senokot-S] 1 tab PO BID #60 tablet No Action rOPINIRole HCL [Requip] 1 mg PO HS Gabapentin [Neurontin] 300 - 600 mg PO Q8HR PRN PRN Reason: Pain Naproxen Sodium [Aleve] 220 mg PO Q12HR PRN PRN Reason: Pain Turmeric Root Extract [Turmeric] 500 mg PO DAILY Vitamin B Complex 1 cap PO DAILY Red Yeast Rice 600 mg PO DAILY Glucosam/Tenzin-Msm1/C/Brandyn/Bosw [Glucosamine-Chondroitin Tablet] 1 tab PO DAILY Ginseng 200 mg PO DAILY [place]-3 Fatty Acids/Fish Oil [Fish Oil 1,000 mg Softgel] 1 cap PO DAILY Melatonin 5 mg PO HS Multivit-Min/FA/Lycopen/Lutein [Centrum Silver Tablet] 1 tab PO DAILY Aspirin 325 mg PO BID #60 tab HYDROcodone/APAP 5-325MG [Roby 5-325] 1 - 2 tab PO Q4-6H PRN #90 tab PRN Reason: Pain Discharge Medication List Gabapentin [Neurontin] 300 - 600 mg PO Q8HR PRN 12/28/16 [History] Ginseng 200 mg PO DAILY 12/28/16 [History] Glucosam/Tenzin-Msm1/C/Brandyn/Bosw [Glucosamine-Chondroitin Tablet] 1 tab PO DAILY 12/28/16 [History] Melatonin 5 mg PO HS 12/28/16 [History] Multivit-Min/FA/Lycopen/Lutein [Centrum Silver Tablet] 1 tab PO DAILY 12/28/16 [ History] Naproxen Sodium [Aleve] 220 mg PO Q12HR PRN 12/28/16 [History] [place]-3 Fatty Acids/Fish Oil [Fish Oil 1,000 mg Softgel] 1 cap PO DAILY [History] Red Yeast Rice 600 mg PO DAILY 12/28/16 [History] Turmeric Root Extract [Turmeric] 500 mg PO DAILY 12/28/16 [History] Vitamin B Complex 1 cap PO DAILY 12/28/16 [History] rOPINIRole HCL [Requip] 1 mg PO HS 12/28/16 [History] Aspirin 325 mg PO BID #60 tab 01/05/17 [Rx] HYDROcodone/APAP 5-325MG [Roby 5-325] 1 - 2 tab PO Q4-6H PRN #90 tab 01/05/17 [ Rx] Aspirin 325 mg PO BID #60 tab 03/08/17 [Rx] HYDROcodone/APAP 5-325MG [Roby 5-325] 1 - 2 tab PO Q4-6H PRN #90 tab 03/08/17 [ Rx] Sennosides-Docusate Sodium [Senokot-S] 1 tab PO BID #60 tablet 03/08/17 [Rx] Follow up Appointment(s)/Referral(s): Preston Ledezma DO [Doctor of Osteopathic Medicine] - 2 Weeks Activity/Diet/Wound Care/Special Instructions: [facility] [phone]. Weightbearing as tolerated with walker May shower after 2 days if no drainage from the incision Follow-up with [facility] in 2 weeks with any questions or concerns Discharge Disposition: HOME WITH HOME HEALTH SERVICES
[2017-03-08] MEDS: HYDROcodone/APAP 5-325MG 1 EACH TAB PO PRN (09:32)
--- NOTE | 2017-03-08 19:57 | PN ---
PROGRESS NOTE DATE OF SERVICE: 03/08/2017 This 51-year-old gentleman who was admitted after left total knee joint arthroplasty is improving significantly. No chest pain. No palpitations. No fever. EXAM: Alert and oriented x3. Pulse 79, blood pressure 117/64, respirations 16, temperature 97.7, pulse ox 97% room air. HEENT: Conjunctivae normal. NECK: No jugular venous distention. CARDIOVASCULAR: Breath sounds diminished in the bases. No rhonchi. No crackles. ABDOMEN: Soft. LEGS: No edema. NERVOUS SYSTEM: No focal deficits. LABS: Hemoglobin 11.8, white count 8.3. ASSESSMENT: 1. Status post left total knee joint arthroplasty. 2. Increased creatinine recently with also mild acute renal failure, improved, currently stable. 3. History of degenerative joint disease. 4. Hypertension. 5. History of Staphylococcus infection. 6. Hyperlipidemia. RECOMMENDATIONS AND DISCUSSION: Recommend to continue current management and current symptomatic treatment. Otherwise, recommend to continue the home medications. The rest of the recommendations per Orthopedic [facility]. Incentive spirometry. Further recommendations to follow. Will follow with Dr. Peña in 2 to 3 weeks and p.r.n. MMODL / IJN: [id number] /
== END 2017-03-08 11:58 | disposition home health service (06) | DRG 470 ==
LOC: 2ORMAIN 06:00 → 3SUR 09:34
PROVIDERS: ADMIT Orthopaedic Surgery; ATTEND Orthopaedic Surgery
PROC: 0SRB06A Replacement of Left Hip Joint with Oxidized Zirconium on Polyethylene Synthetic Substitute, Uncemented, Open Approach (ICD-10-PCS; principal; 2017-03-07 07:30)
DX: M16.12 Unilateral primary osteoarthritis, left hip (principal); N17.9 Acute kidney failure, unspecified; I10 Essential (primary) hypertension; E78.5 Hyperlipidemia, unspecified; Z79.82 Long term (current) use of aspirin; Z86.19 Personal history of other infectious and parasitic diseases
CPT/HCPCS: 73501; 73502; 80048; 85025; 86850; 86891; 86900; 86901; 88300

== ENCOUNTER → 2020-10-07 | Outpatient (CLI) | payer OTHER ==
--- NOTE | 2020-10-07 12:05 | XR ---
EXAMINATION TYPE: XR clavicle LT, XR ribs LT w pa chest xray DATE OF EXAM: 10/07/2020 CLINICAL HISTORY: pain COMPARISON: NONE TECHNIQUE: Three views of the left shoulder are obtained. FINDINGS: Left glenohumeral joint is intact. AC joint is within normal limits. There is vague lucency overlying the scapula. A virtually nondisplaced fracture is difficult to exclude. Correlate clinical ly and consider dedicated scapular views. IMPRESSION: 1. There is vague lucency overlying the scapula. A virtually nondisplaced fracture is difficult to ex clude. Correlate clinically and consider dedicated scapular views. EXAMINATION TYPE: XR clavicle LT, XR ribs LT w pa chest xray DATE OF EXAM: 10/07/2020 COMPARISON: NONE HISTORY: Pain TECHNIQUE: Single view of the chest left views of the ribs are submitted. FINDINGS: The lungs are clear. No Evidence for pneumothorax. No evidence for focal contusion. Medi astinal structures are midline. Fracture Left ribs 6, 7, 8 and 9. IMPRESSION: Fracture Left ribs 6, 7, 8 and 9. No evidence for pneumothorax.
== END | disposition home or self-care (01) ==
LOC: RADXRYALE 11:34
PROVIDERS: ATTEND Family Medicine
DX: M25.512 Pain in left shoulder (principal); S22.42XA Multiple fractures of ribs, left side, initial encounter for closed fracture